=== PATIENT | female | born 1930 | race Caucasian/White ===

== ENCOUNTER 2018-02-07 11:06 | Outpatient (CLI) | payer OTHER | END 2018-02-07 15:28 | disposition home or self-care (01) | LOC: HPC 11:06 | DX: R16.0 Hepatomegaly, not elsewhere classified (principal); B19.20 Unspecified viral hepatitis C without hepatic coma; B19.10 Unspecified viral hepatitis B without hepatic coma; I48.91 Unspecified atrial fibrillation; I51.7 Cardiomegaly; I12.9 Hypertensive chronic kidney disease with stage 1 through stage 4 chronic kidney disease, or unspecified chronic kidney disease; N18.9 Chronic kidney disease, unspecified; E78.5 Hyperlipidemia, unspecified; K21.9 Gastro-esophageal reflux disease without esophagitis; E03.9 Hypothyroidism, unspecified; F03.90 Unspecified dementia, unspecified severity, without behavioral disturbance, psychotic disturbance, mood disturbance, and anxiety; G47.33 Obstructive sleep apnea (adult) (pediatric); M19.90 Unspecified osteoarthritis, unspecified site; Z79.01 Long term (current) use of anticoagulants | CPT/HCPCS: G0463 ==